=== PATIENT | male | born 1990 | race Caucasian/White ===

== ENCOUNTER → 2017-12-24 14:21 | Outpatient (CLI) | payer OTHER, SELFPAY ==
--- NOTE | 2017-12-24 14:27 | US_ITS ---
STUDY: SCROTUM ULTRASOUND REASON FOR EXAM: Male, 27 years old. Left scrotal pain. TECHNIQUE: Transverse and longitudinal imaging of the scrotum was obtained using real-time ultrasound. COMPARISON: None. FINDINGS: RIGHT INTRATESTICULAR: The right testicle measures 4.9 x 2.5 x 2.9 cm. There is homogenous echotexture. There is normal arterial and normal venous vascularity. There is no demonstrated right testicular mass. EXTRATESTICULAR: The epididymal head measures 11.4 x 8.3 x 11.0 mm. There is normal vascularity of the epididymis. There are two benign cysts in the right epididymal head measuring 3.5 mm and 3.2 mm. There is minimal fluid around the right testicle. There is no demonstrated varicocele. There is no demonstrated extratesticular mass or cyst. LEFT INTRATESTICULAR: The left testicle measures 5.8 x 3.3 x 4.1 cm. There is homogenous echotexture. There is normal arterial and normal venous vascularity. There are two hypoechoic masses in the left testicle measuring 4.3 x 3.0 x 3.8 cm and 3.0 x 2.0 x 1.9 cm. EXTRATESTICULAR: The epididymal head measures 15.2 x 16.8 x 18.0 mm. There is normal vascularity of the epididymis. There is no demonstrated epididymal cystic structure. There is minimal fluid around the left testicle. There is no demonstrated varicocele. There is no demonstrated extratesticular mass or cyst. US/Testicular with Arterial Flow IMPRESSION: There are two solid-appearing masses in the left testicle which are worrisome for tumors. These measure 4.3 x 3.0 x 3.8 cm and 3.0 x 2.0 x 1.9 cm. There are small hydroceles bilaterally. Electronically Signed: Roxy Lu MD at 0:12 EDT Tel Direct: [phone], Service support ,
== END ==
PROVIDERS: Family Provider Family Medicine; PCP Family Medicine; Visit Provider Family Medicine
DX: N45.1 Epididymitis (principal); Z80.43 Family history of malignant neoplasm of testis
CPT/HCPCS: 76870; 93976

== ENCOUNTER → 2017-12-27 16:08 | Outpatient (CLI) | payer OTHER, SELFPAY ==
[2017-12-27 17:53] LABS: LDH 262 U/L (87-241)
[2017-12-29 11:36] LABS: HCG BETA-SUBUNIT QUANT. 6 mIU/mL (0-3)
[2017-12-29 12:06] LABS: AFP, Tumor Marker 3.1 ng/mL (0.0-8.3)
== END ==
PROVIDERS: Family Provider Family Medicine; PCP Family Medicine; Visit Provider Nurse Practitioner Adult Health
DX: N50.89 Other specified disorders of the male genital organs (principal)
CPT/HCPCS: 36415; 82105; 83615; 84702

== ENCOUNTER → 2017-12-28 09:26 | Outpatient (CLI) | payer OTHER, SELFPAY ==
--- NOTE | 2017-12-28 09:29 | CT_ITS ---
STUDY: CT ABDOMEN AND PELVIS WITH CONTRAST REASON FOR EXAM: Male, 27 years old. Painful left testicular mass. RADIATION DOSAGE (If Supplied By Facility): CTDIvol = ( 19.9 ) mGy, DLP = ( 1433.82 ) mGycm TECHNIQUE: Transaxial images were obtained from the dome of the diaphragm to the symphysis pubis with oral contrast. 100 ml of Isovue 300 contrast was administered. Sagittal and coronal images were reconstructed. Individualized dose optimization techniques were used for this CT. COMPARISON: None. FINDINGS: The visualized lung bases are unremarkable. The visualized portions of the heart are within normal limits. Normal liver. Normal gallbladder and extrahepatic biliary system. Normal spleen. Normal pancreas. Normal bilateral adrenal glands. Normal right kidney. Normal left kidney. There is a small hiatal hernia. Normal small intestine. Normal colon. The appendix is visualized and appears normal. Normal abdominal aorta. Normal inferior vena cava. Normal retroperitoneum. Normal urinary bladder. Small bilateral hydroceles. Inhomogeneous enlargement of the left testicle in keeping with history of left testicular mass. Small benign-appearing bilateral inguinal lymph nodes. Normal abdominal wall. Normal osseous structures. CT/Abdomen/Pelvis WITH Contrast IMPRESSION: Small bilateral hydroceles. Enlarged left testicle in keeping with the known left testicular mass. Electronically Signed: Tyrone Leung MD at 10:31 EDT Tel [phone], Service support ,
== END ==
PROVIDERS: Family Provider Family Medicine; PCP Family Medicine; Visit Provider Nurse Practitioner Adult Health
DX: N50.812 Left testicular pain (principal); N50.89 Other specified disorders of the male genital organs
CPT/HCPCS: 74177; Q9967

== ENCOUNTER 2018-01-02 05:43 | Day surgery (SDC) | payer OTHER, SELFPAY ==
--- NOTE | 2018-01-02 | TEST_PTH ---
PATIENT: STEFANIE CUNNINGHAM [place] [facility] [id number] AGE/SX: 27/M ROOM: RE01/02/[address]: Dr. Roshan Henao MD : 1990 BED: DIS: 01/02/2018 SPEC #: [id number] RECD: 01/02/18 07:58 STATUS: ANALI DELIO #: [id number] BARBRA: 01/02/18 00:[address]: Roshan Henao DEPT: SURGICAL PATHOLOGY RECD BY: Aleida Smith ENTERED: 01/02/18 09:18 SP TYPE: TESTICLE OTHR DR: Dr. Jesus Austin MD Tissues: Testis, NOS Procedures: Frozen Section (charge) Surgery Specimen Level Diff Quik Stain (control) Frozen (no charge) HEADER OPERATION: Left inguinal radical orchiectomy, FS PRE-OP DIAGNOSIS: Mass left testicle TISSUE SUBMITTED: Left testicle and cord, FS FROZEN SECTION DIAGNOSIS Left testicle and cord: Seminoma.. Final pending permanent sections. SJ:troy 01/02/18 MICROSCOPIC DIAGNOSIS Left testicle and cord, radical inguinal orchiectomy: Seminoma, classic type. See cancer summary below. TESTIS - RADICAL ORCHIECTOMY CANCER SUMMARY: Serum tumor markers ? Mild elevation of B-hCG Mild elevation of lactate dehydrogenase (LDH). Specimen laterality - left Tumor focality - unifocal Tumor Size ? 5.5 x 4 x 3 cm Macroscopic extent of tumor ? confined to the testis Histologic Type ? seminoma, classic type Margins ? margins uninvolved by tumor Microscopic tumor extension ? focal invasion into the rete testis. Lymph-vascular invasion ? not identified Regional lymph nodes ? no lymph nodes submitted or found. Distant metastasis ? not applicable Serum Tumor Markers: LDH 262 U/L (N - 87-241) AFP 3.1 ng/ml (N - 0.0-8.3) HCG Beta 6 mIU/ML (N - 0-3) Additional Pathologic Findings ? Atrophic changes, seminiferous tubules adjacent to the tumor. I Intratubular germ cell neoplasia ? not identified PATHOLOGIC STAGE: pT1 pNx Mx The above summary is in compliance with [employer] (CAP) Cancer Protocols Checklist and [place] Joint Committee on Cancer (AJCC), Staging Manual, 8th Ed. SJ:troy 01/07/18 COMMENT Case has been reviewed in consultation with Dr. Menjivar who concurs with the above diagnosis. IDC:AM MICROSCOPIC DESCRIPTION Slides are reviewed. GROSS DESCRIPTION Received fresh for frozen section diagnosis labeled with the patient's name is a specimen designated left testicle and cord. The specimen consists of a radical orchiectomy specimen consisting of testicle and spermatic cord. The entire specimen weighs 75 gm. The testicle measures 6.5 x 5 x 4 cm. The spermatic cord measures 6 cm in length and 1.5 cm in diameter. The specimen is bisected and reveals a hutchins, soft, ovoid mass measuring 5.5 x 4 x 4 cm. This mass appears to be confined to testis. A section of the mass is submitted for frozen section diagnosis. Sections of the mass do not reveal any area of hemorrhage, necrosis or cystic degeneration. The epididymis measures 3.5 cm in length and 0.5 cm in width. The testis appears hutchins-bright yellow. 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 frozen section, 2 ? resection margin of spermatic cord, 3 ? more section of spermatic cord, 4?? tunica vaginalis and epididymis, 5 ? more section of epididymis, 6-10 ? tumor with adjacent uninvolved testicular parenchyma. Sections will be submitted after infusion cycle. / ALL:troy 01/03/18 TC:0 CPT: 83625, 17791
[2018-01-02 05:56] VITALS: BP 123/69; PULSE 63; RESP 14; TEMP 36.2; O2SAT 99; BMI 31.8
[2018-01-02] MEDS: Cefazolin 2 GM in 0.9% Normal Saline 100 ML IV (07:20)
--- NOTE | 2018-01-02 07:29 | PCM.DC.URO ---
Discharge Diet: Light diet - advance as tolerated Discharge Activity: May not drive while taking narcotic pain medications., May Shower Return to work on:: 01/10/18 May resume sexual activity in: 4 weeks Call your doctor if your incision/area has: Continuous Slow Oozing, Sudden Increased Bleeding, Increased Pain/ Swelling, Increased Redness, Foul Smelling Discharge, Swelling at the incision site Call your doctor if you observe: Fever of 101 or Higher Suture Line Care: Avoid Pulling/Pushing, Avoid Pinching/Bending Instructions: Radical Orchiectomy Allergies/Adverse Reactions: Allergies No Known Allergies Allergy (Verified 01/01/18 08:22) Medications to take at Discharge Acetaminophen [Tylenol Extra Strength] 500 - 1,000 mg PO Q6H PRN PRN 01/01/18 Cyclobenzaprine [Flexeril] 10 mg PO TID PRN PRN 01/01/18 Ibuprofen 600 mg PO PRN PRN 01/01/18 Docusate Sodium [Colace] 100 mg PO BID #20 cap 01/02/18 Hydrocodone/Acetaminophen [[place] 5-325 Tablet] 1 ea PO Q4H PRN PRN 5 Days #20 tab 01/02/18 The following prescriptions were given: Hydrocodone/Acetaminophen [[place] 5-325 Tablet] 1 ea PO Q4H PRN PRN 5 Days #20 tab PRN Reason: Pain Docusate Sodium [Colace] 100 mg PO BID #20 cap Primary Care Physician: Jesus Austin MD [Primary Care Provider] - Please Follow Up With: Roshan Henao MD When: January 10 at 2pm
[2018-01-02] MEDS: Bupivacaine Mpf 0.5% 30 ML VIAL (07:55)
--- NOTE | 2018-01-02 08:15 | PCM.OPRPT ---
Report of Operation Date of Procedure: 01/02/18 Pre-Operative Diagnosis: Left testicular mass Post-Operative Diagnosis: Same Surgery/Procedure Performed:: Left radical orchiectomy, inguinal approach Description of Surgical Findings:: 27-year-old male who was found to have a solid mass in his testicle on exam he has a solid hard mass on the left testicle. He had preoperative tumor markers drawn and a preoperative CAT scan performed. Presents now to the hospital for an outpatient radical orchiectomy. Patient was taken back to the operating room after smooth induction of general anesthesia he underwent timeout procedure, he was given antibiotics, SCDs were in place, the left inguinal area area was shaved prepped and draped in sterile fashion, I then infiltrated above the left inguinal canal the skin with lidocaine and then made an incision about 4.5 cm in the skin above the left inguinal canal dissected through the fat and Amy's fascia and got down to the fascia and then I opened up the superficial ring of the inguinal canal and identified the ilioinguinal nerve, I then went around the entire cord and then put a high ligation on the cord I then manipulated and brought the testicle up into the field with a scrotum dissected free from the gubernacular attachments, I then placed 2 clamps and the cord transected and cord and testicle were then sent off to the pathologist for frozen section, I then performed ligation of the cord individual ligation and then freehand tie of the cord left along looks string on the cord for identification of the end of the cord, I then closed the external oblique rolls inguinal canal with interrupted making sure not to entrap the ilioinguinal nerve, and closed this Amy's fascia in interrupted fashion and then closed the skin with subcuticular stitches. Patient's anesthetic was reversed and he was taken back to the PACU in good condition. Type of Anesthesia:: General Drains: none - Admit VTE Documentation VTE Present on Admission: No VTE Mechan Device Prophylaxis: SCD's VTE Pharm Prophylaxis ordered?: No Reason prophylaxis not ordered:: Treatment Not Indicated
[2018-01-02 08:25] VITALS: BP 100/57; BP 123/69; PULSE 65; RESP 16; TEMP 36.3; O2SAT 98
[2018-01-02 08:45] VITALS: BP 100/59; BP 123/69; PULSE 58; RESP 16; O2SAT 92
[2018-01-02 09:00] VITALS: BP 123/69; BP 91/49; PULSE 55; RESP 16; O2SAT 94
[2018-01-02 09:15] VITALS: BP 123/69; BP 99/62; PULSE 68; RESP 16; TEMP 35.9; O2SAT 97
[2018-01-02] MEDS: HYDROcodone Bitartrate/Apap 5/325 Tablet PO (10:21)
[2018-01-02 11:03] VITALS: BP 123/69
== END 2018-01-02 11:04 | disposition home or self-care (01) ==
LOC: SDC 05:44 → AC 05:45
PROVIDERS: Family Provider Family Medicine; PCP Family Medicine; Visit Provider Urology
PROC: (CPT 54520; principal; 2018-01-02 07:15)
DX: C62.12 Malignant neoplasm of descended left testis (principal); Z79.899 Other long term (current) drug therapy
CPT/HCPCS: 00926; 54530; 88309; 88331; J7120; J2405

== ENCOUNTER → 2018-02-04 14:24 | Outpatient (CLI) | payer OTHER, SELFPAY ==
--- NOTE | 2018-02-04 14:26 | CT_ITS ---
STUDY: CT CHEST WITH CONTRAST REASON FOR EXAM: Male, 27 years old. TESTICULAR CA-RECENT REMOVAL OF LT TESTICLE, F/U CXR RADIATION DOSAGE (If Supplied By Facility): CTDIvol = ( 19.08 ) mGy, DLP = ( 683.89 ) mGycm TECHNIQUE: Transaxial imaging was performed following intravenous administration of 100 ml of Isovue 300 contrast material. Individualized dose optimization techniques were used for this CT. COMPARISON: cxr 01.16.18 FINDINGS: The lungs are normal. There is no demonstrated pleural abnormality. Normal heart and pericardium. Normal mediastinum. Normal hilar regions. Normal enhanced pulmonary arteries. Normal aorta arch and descending thoracic aorta. Normal osseous structures. There is no demonstrated abnormality of the visualized upper abdomen. CT/Chest WITH Contrast IMPRESSION: Normal enhanced CT Chest examination. Infrahilar mass is not visualized. Electronically Signed: Michael Dacosta MD at 19:45 EDT , Service support ,
== END ==
PROVIDERS: Family Provider Family Medicine; PCP Family Medicine; Visit Provider Internal Medicine Medical Oncology
DX: C62.92 Malignant neoplasm of left testis, unspecified whether descended or undescended (principal)
CPT/HCPCS: 71260; Q9967

== ENCOUNTER → 2018-05-09 09:05 | Outpatient (CLI) | payer OTHER, SELFPAY ==
[2018-05-09 09:50] LABS: Absolute Lymphocyte Count 1.63 X10^3/ul (0.83-4.51); Absolute Neutrophil Count 2.7 X10^3/uL (2.0-7.7); Basophil# 0.01 X10^3/uL; Basophil% 0.2 % (0-1); Eosinophil# 0.13 X10^3/uL; Eosinophils% 2.7 % (0-5); Hematocrit 41.7 % (40-54); Hemoglobin 13.9 g/dl (13.0-16.5); Lymphocyte # 1.63 X10^3/ul (4.0); Lymphocyte % 33.3 % (19-41); Mean Corp Hgb Conc 33.3 g/gl (32-36); Mean Corpuscular Hgb 29.4 pg (27.0-32.0); Mean Corpuscular Volume 88.2 fL (80-94); Mean Platelet Vol. 11.9 fl (6.2-12.0); Monocyte# 0.39 X10^3/uL; Neutrophil # 2.71 X10^3/uL (2.7-7.7); Neutrophil % 55.4 % (47-70); Platelet Count 235 K/mm3 (150-450); RBC Distribution Width CV 13.1 % (11.6-14.6); RBC Distribution Width SD 41.5 fl (35.1-43.9); Red Blood Count 4.73 M/mm3 (4.6-6.2); White Blood Count 4.9 K/mm3 (4.4-11.0)
[2018-05-09 09:53] LABS: POSITIVE COUNT NO; POSITIVE DIFFERENTIAL NO; POSITIVE MORPHOLOGY NO
[2018-05-09 10:13] LABS: ALB/GLOB Ratio 1.1 RATIO (0.9-2.4); AST(SGOT) 32 U/L (15-37); Alanine Aminotransfer ALT/SGPT 55 U/L (16-61); Albumin, Serum 4.1 g/dL (3.2-5.0); Alkaline Phosphatase 76 U/L (45-117); Anion Gap 9 (5-15); BUN 15 mg/dL (7-18); BUN/Creat Ratio 12.5 RATIO (10-20); Calcium,Total 9.1 mg/dL (8.5-10.1); Chloride 109 mmol/L (98-107); EST Glomerular Filtration Rate 76 mL/min (>60); Est Glom Filt Rate - Afr Amer 92 mL/min (>60); Globulin 3.6 g/dL (2.2-4.2); Glucose 105 mg/dL (74-106); LDH 282 U/L (87-241); Potassium 4.5 mmol/L (3.5-5.1); Protein, Total 7.7 g/dL (6.4-8.2); Sodium Level 143 mmol/L (136-145)
[2018-05-09 17:12] LABS: Xtra Tube EP Lab EXTRA TUBE
[2018-05-10 10:57] LABS: HCG BETA-SUBUNIT QUANT. < 1 mIU/mL (0-3)
[2018-05-10 11:00] LABS: AFP, Tumor Marker 2.6 ng/mL (0.0-8.3)
== END ==
PROVIDERS: Family Provider Family Medicine; PCP Family Medicine; Visit Provider Internal Medicine Medical Oncology
DX: C62.12 Malignant neoplasm of descended left testis (principal)
CPT/HCPCS: 36415; 80053; 82105; 83615; 84702; 85025

== ENCOUNTER → 2018-11-19 16:51 | Outpatient (CLI) | payer OTHER, SELFPAY ==
--- NOTE | 2018-11-19 17:08 | CT_ITS ---
STUDY: CT ABDOMEN AND PELVIS WITH CONTRAST REASON FOR EXAM: Male, 28 years old. Testicular cancer, left testicle removed. Follow-up. RADIATION DOSAGE (If Supplied By Facility): CTDIvol = ( 17.2 ) mGy, DLP = ( 2566.85 ) mGycm TECHNIQUE: Transaxial images were obtained from the dome of the diaphragm to the symphysis pubis with oral contrast. 100 ml of Isovue 370 contrast was administered. Sagittal and coronal images were reconstructed. Individualized dose optimization techniques were used for this CT. COMPARISON: CT chest 2018, CT abdomen and pelvis 12/28/2017. FINDINGS: Body wall soft tissues: There is no inguinal lymphadenopathy. Postsurgical changes of the left inguinal canal consistent with orchiectomy. Grossly normal features of the evaluated portion of the right testis. Osseous structures: No acute process. Inferior chest: No acute process. Hepatobiliary: Normal. Pancreas: No acute process. Spleen: Normal. Adrenal glands: Normal. Urogenital: Normal kidneys, collecting systems, ureters, urinary bladder, prostate and seminal vesicles. Pelvic floor and sidewalls and retroperitoneum: No mass or adenopathy. Vasculature: No acute process. Stomach: No acute process. Small bowel and mesentery: No acute process. Large bowel: No acute process. Free fluid or free air: None. CT/Abdomen/Pelvis WITH Contrast IMPRESSION: Left orchiectomy, otherwise normal enhanced CT of the abdomen and pelvis. No evidence of metastatic disease/lymphadenopathy. Electronically Signed: Serafin Sparrow MD at 11:52 EDT Tel , Service support ,
--- NOTE | 2018-11-19 17:08 | CT_ITS ---
STUDY: CT CHEST WITH CONTRAST REASON FOR EXAM: Male, 28 years old. Testicular cancer, left testicle removed. RADIATION DOSAGE (If Supplied By Facility): CTDIvol = ( 17.2 ) mGy, DLP = ( 2566.85 ) mGycm TECHNIQUE: Transaxial imaging was performed following intravenous administration of 100 IV Isovue 370. Coronal and sagittal 2-D MPR. Individualized dose optimization techniques were used for this CT. COMPARISON: None. FINDINGS: Supraclavicular: Normal. Body wall soft tissues: Minimal bilateral gynecomastia, symmetric. Osseous structures: Slight scoliosis. Mediastinum: Normal esophagus. No mass or lymphadenopathy. Cardiovascular: Normal. Bones: Normal lungs bilaterally. No pulmonary nodules. Normal airways. CT/Chest WITH Contrast IMPRESSION: Normal enhanced CT Chest examination. Electronically Signed: Serafin Sparrow MD at 11:57 EDT Tel , Service support ,
[2018-11-19 17:35] LABS: ALB/GLOB Ratio 1.3 RATIO (0.9-2.4); AST(SGOT) 30 U/L (15-37); Alanine Aminotransfer ALT/SGPT 51 U/L (16-61); Albumin, Serum 4.5 g/dL (3.2-5.0); Alkaline Phosphatase 79 U/L (45-117); Anion Gap 4 (5-15); BUN 12 mg/dL (7-18); BUN/Creat Ratio 10.9 RATIO (10-20); Calcium,Total 9.1 mg/dL (8.5-10.1); Chloride 108 mmol/L (98-107); EST Glomerular Filtration Rate 84 mL/min (>60); Est Glom Filt Rate - Afr Amer 102 mL/min (>60); Globulin 3.5 g/dL (2.2-4.2); Glucose 86 mg/dL (74-106); LDH 209 U/L (87-241); Sodium Level 138 mmol/L (136-145)
[2018-11-19 17:36] LABS: Absolute Lymphocyte Count 2.37 X10^3/ul (0.83-4.51); Absolute Neutrophil Count 3.8 X10^3/uL (2.0-7.7); Basophil# 0.01 X10^3/uL; Basophil% 0.1 % (0-1); Eosinophil# 0.26 X10^3/uL; Eosinophils% 3.7 % (0-5); Hematocrit 42.9 % (40-54); Hemoglobin 14.3 g/dl (13.0-16.5); Lymphocyte # 2.37 X10^3/ul (4.0); Lymphocyte % 33.8 % (19-41); Mean Corp Hgb Conc 33.3 g/gl (32-36); Mean Corpuscular Hgb 29.3 pg (27.0-32.0); Mean Corpuscular Volume 87.9 fL (80-94); Mean Platelet Vol. 11.7 fl (6.2-12.0); Monocyte# 0.54 X10^3/uL; Monocyte% 7.7 % (0-10); Neutrophil # 3.82 X10^3/uL (2.7-7.7); Neutrophil % 54.4 % (47-70); Platelet Count 242 K/mm3 (150-450); RBC Distribution Width CV 13.2 % (11.6-14.6); RBC Distribution Width SD 42.7 fl (35.1-43.9); Red Blood Count 4.88 M/mm3 (4.6-6.2)
[2018-11-19 17:37] LABS: POSITIVE COUNT NO; POSITIVE DIFFERENTIAL NO; POSITIVE MORPHOLOGY NO
[2018-11-21 14:31] LABS: AFP, Tumor Marker 2.9 ng/mL (0.0-8.3); HCG BETA-SUBUNIT QUANT. < 1 mIU/mL (0-3)
== END ==
PROVIDERS: Family Provider Family Medicine; PCP Family Medicine; Referring Provider Internal Medicine Medical Oncology; Visit Provider Internal Medicine Medical Oncology
DX: C62.12 Malignant neoplasm of descended left testis (principal)
CPT/HCPCS: 36415; 71260; 74177; 80053; 82105; 83615; 84702; 85025; Q9967

== ENCOUNTER → 2019-04-30 | Outpatient (CLI) | payer OTHER, SELFPAY ==
[2018-11-26 09:00] VITALS: BMI 32.8
[2019-04-30 17:05] LABS: Absolute Lymphocyte Count 2.01 X10^3/uL (0.83-4.51); Absolute Neutrophil Count 3.6 X10^3/uL (2.0-7.7); Basophil# 0.03 X10^3/uL; Basophil% 0.5 % (0-1); Eosinophil# 0.22 X10^3/uL; Eosinophils% 3.4 % (0-5); Hematocrit 42.7 % (40-54); Lymphocyte # 2.01 X10^3/ul (4.0); Lymphocyte % 30.7 % (19-41); Mean Corp Hgb Conc 32.8 g/dL (32-36); Mean Corpuscular Hgb 29.5 pg (27.0-32.0); Mean Corpuscular Volume 89.9 fL (80-94); Mean Platelet Vol. 11.4 fl (6.2-12.0); Monocyte# 0.63 X10^3/uL; Monocyte% 9.6 % (0-10); NRBC Flagged by Analyzer 0 % (0-5); Neutrophil # 3.62 X10^3/uL (2.7-7.7); Neutrophil % 55.2 % (47-70); Platelet Count 249 K/mm3 (150-450); RBC Distribution Width CV 12.9 % (11.6-14.6); RBC Distribution Width SD 42.8 fl (35.1-43.9); Red Blood Count 4.75 M/mm3 (4.6-6.2); White Blood Count 6.6 K/mm3 (4.4-11.0)
[2019-04-30 17:30] LABS: ALB/GLOB Ratio 1.2 RATIO (0.9-2.4); AST(SGOT) 29 U/L (15-37); Alanine Aminotransfer ALT/SGPT 44 U/L (16-61); Albumin, Serum 4.1 g/dL (3.2-5.0); Alkaline Phosphatase 81 U/L (45-117); Anion Gap 6 (5-15); BUN 13 mg/dL (7-18); BUN/Creat Ratio 11.5 RATIO (10-20); Calcium,Total 9.1 mg/dL (8.5-10.1); Chloride 110 mmol/L (98-107); Creatinine, Serum 1.13 mg/dL (0.70-1.30); EST Glomerular Filtration Rate 81 mL/min (>60); Est Glom Filt Rate - Afr Amer 98 mL/min (>60); Globulin 3.4 g/dL (2.2-4.2); Glucose 115 mg/dL (74-106); Protein, Total 7.5 g/dL (6.4-8.2); Sodium Level 142 mmol/L (136-145)
[2019-05-05 12:33] LABS: AFP, Tumor Marker 2.6 ng/mL (0.0-8.3); HCG BETA-SUBUNIT QUANT. < 1 mIU/mL (0-3)
== END | disposition home or self-care (01) ==
LOC: LAB 16:34
PROVIDERS: Family Provider Family Medicine; PCP Family Medicine; Referring Provider Internal Medicine Medical Oncology; Visit Provider Internal Medicine Medical Oncology
DX: C62.90 Malignant neoplasm of unspecified testis, unspecified whether descended or undescended (principal)
CPT/HCPCS: 36415; 80053; 82105; 84702; 85025

== ENCOUNTER → 2019-12-12 12:43 | Outpatient (CLI) | payer BC, SELFPAY ==
[2019-05-13 08:50] VITALS: BMI 31.4
[2019-12-12 15:55] LABS: PSA,Total - Annual Screen 0.67 ng/mL (0.00-4.00); T4 Free Direct 0.97 ng/dL (0.76-1.46); Thyroid Stim Hormone (TSH) 1.51 uIU/mL (0.358-3.74)
[2019-12-16 08:07] LABS: Testosterone, Free 9.97 ng/dL (5.00-21.00)
[2019-12-16 23:53] LABS: Testosterone, % Free 2.34 % (1.50-4.20); Testosterone, Total 426 ng/dL (264-916)
== END ==
PROVIDERS: PCP Family Medicine; Referring Provider Family Medicine; Visit Provider Family Medicine
DX: R68.82 Decreased libido (principal); R39.11 Hesitancy of micturition; R53.83 Other fatigue
CPT/HCPCS: 36415; 84153; 84402; 84403; 84439; 84443; G0103

== ENCOUNTER → 2020-01-22 09:28 | Outpatient (CLI) | payer BC, SELFPAY ==
[2019-05-13 08:50] VITALS: BMI 31.4
[2020-01-22 10:19] LABS: Absolute Lymphocyte Count 1.68 X10^3/uL (0.83-4.51); Absolute Neutrophil Count 3.7 X10^3/uL (2.0-7.7); Basophil# 0.02 X10^3/uL; Basophil% 0.3 % (0-1); Eosinophils% 1.6 % (0-5); Hematocrit 44.4 % (40-54); Hemoglobin 14.5 g/dL (13.0-16.5); Lymphocyte # 1.68 X10^3/ul (4.0); Lymphocyte % 27.1 % (19-41); Mean Corp Hgb Conc 32.7 g/dL (32-36); Mean Corpuscular Hgb 29.8 pg (27.0-32.0); Mean Corpuscular Volume 91.4 fL (80-94); Monocyte# 0.64 X10^3/uL; Monocyte% 10.3 % (0-10); NRBC Flagged by Analyzer 0 % (0-5); Neutrophil # 3.74 X10^3/uL (2.7-7.7); Neutrophil % 60.4 % (47-70); Platelet Count 241 K/mm3 (150-450); RBC Distribution Width SD 42.7 fl (35.1-43.9); Red Blood Count 4.86 M/mm3 (4.6-6.2); White Blood Count 6.2 K/mm3 (4.4-11.0)
[2020-01-22 11:05] LABS: ALB/GLOB Ratio 1.2 RATIO (0.9-2.4); AST(SGOT) 29 U/L (15-37); Alanine Aminotransfer ALT/SGPT 37 U/L (16-61); Albumin, Serum 4.2 g/dL (3.2-5.0); Alkaline Phosphatase 84 U/L (45-117); Anion Gap 7 (5-15); BUN 17 mg/dL (7-18); BUN/Creat Ratio 14.4 RATIO (10-20); Calcium,Total 9.2 mg/dL (8.5-10.1); Chloride 109 mmol/L (98-107); Creatinine, Serum 1.18 mg/dL (0.70-1.30); EST Glomerular Filtration Rate 77 mL/min (>60); Est Glom Filt Rate - Afr Amer 93 mL/min (>60); Globulin 3.6 g/dL (2.2-4.2); Glucose 80 mg/dL (74-106); LDH 269 U/L (87-241); Potassium 4.2 mmol/L (3.5-5.1); Protein, Total 7.8 g/dL (6.4-8.2); Sodium Level 142 mmol/L (136-145)
[2020-01-23 13:11] LABS: HCG BETA-SUBUNIT QUANT. < 1 mIU/mL (0-3)
[2020-01-23 13:18] LABS: AFP, Tumor Marker 2.5 ng/mL (0.0-8.3)
== END ==
PROVIDERS: PCP Family Medicine; Referring Provider Internal Medicine Medical Oncology; Visit Provider Internal Medicine Medical Oncology
DX: C62.12 Malignant neoplasm of descended left testis (principal)
CPT/HCPCS: 36415; 80053; 82105; 83615; 84702; 85025

== ENCOUNTER → 2020-02-17 15:46 | Outpatient (CLI) | payer BC, SELFPAY ==
[2020-01-28 08:42] VITALS: BMI 30.8
[2020-02-17 21:01] LABS: Chlamydia Trachomatis by PCR Negative (Negative); Neisserai gonorrhoeae by PCR Negative (Negative); Probe Check PASS; Sample Adequacy Control PASS; Specimen Processing Control PASS
[2020-02-18 09:50] LABS: HIV - WCH Non-Reactive (Nonreactive); Hepatitis B Surface Antigen Non-Reactive (Nonreactive); Hepatitis C Antibody Non-Reactive (Nonreactive)
[2020-02-19 04:31] LABS: Rapid Plasmin Reagin (RPR) NONREACTIVE (NONREACTIVE)
== END ==
PROVIDERS: PCP Family Medicine; Referring Provider Family Medicine; Visit Provider Family Medicine
DX: Z20.9 Contact with and (suspected) exposure to unspecified communicable disease (principal)
CPT/HCPCS: 36415; 86592; 86703; 86803; 87340; 87491; 87591

== ENCOUNTER → 2025-07-13 | Outpatient (CLI) | payer SELFPAY ==
--- NOTE | 2025-07-13 16:10 | RAD_ITS ---
PROCEDURE: SHOULDER MIN 2 VIEWS 07/13/2025 REASON FOR EXAM: SHOULDER PAIN TECHNIQUE: Procedure Code: RADSH Modality: DX Procedure: SHOULDER MIN 2 VIEWS Laterality: Right. COMPARISON: None. 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 The right glenohumeral joint shows no significant abnormality. No fracture or dislocation is seen. Reading Location: [id number]
== END | disposition home or self-care (01) ==
PROVIDERS: PCP Family Medicine; Referring Provider Chiropractor Orthopedic; Visit Provider Chiropractor Orthopedic
DX: S43.401A Unspecified sprain of right shoulder joint, initial encounter (principal)
CPT/HCPCS: 73030